=== PATIENT | female | born 1960 | race Caucasian/White ===

== ENCOUNTER 2019-05-06 09:24 | Inpatient (IN) | payer OTHER ==
[2019-05-06 09:50] VITALS: BMI 25.2
--- NOTE | 2019-05-06 10:24 | HP ---
CIWA Score Nausea/Vomitin-No Nausea/No Vomiting Muscle Tremors: None Anxiety: 1-Mildly Anxious Agitation: 1-Slight > Activity Paroxysmal Sweats: No Perspiration Orientation: 0-Oriented Tacttile Disturbances: 0-None Auditory Disturbances: 0-None Visual Disturbances: 0-None Headache: 1-Very Mild CIWA-Ar Total Score: 3 - Admission Criteria OASAS Guidelines: Admission for Medically Managed Detox: Requires at least one of the followin. CIWA greater than 12 2. Seizures within the past 24 hours 3. Delirium tremens within the past 24 hours 4. Hallucinations within the past 24 hours 5. Acute intervention needed for co occurring medical disorder 6. Acute intervention needed for co occurring psychiatric disorder 7. Severe withdrawal that cannot be handled at a lower level of care (continued vomiting, continued diarrhea, abnormal vital signs) requiring intravenous medication and/or fluids 8. Admitting History and Physical - Past Medical History ...LMP: 01/26/13 - Smoking History Smoking history: Current every day smoker Have you smoked in the past 12 months: Yes Aproximately how many cigarettes per day: 5 - Alcohol/Substance Use Hx Alcohol Use: Yes (reports drinking since 13 years old,i pint of vodka daily) Admission [facility] Allergies/Adverse Reactions: Allergies Allergy/AdvReac Type Severity Reaction Status Date / Time No Known Allergies Allergy Verified 05/06/19 09:42 History of Present Illness: pt here reporting etoh use 6 beers/week , drinking alcohol 5-6 x/week , latest use yesterday, cocaine " 24 hrs/day " 100 $ /day , latest today cannabis - " once in a while " tobacco : 07/19 ppd PMHX : htn Exam Limitations: Clinical Condition - Ebola screening Have you traveled outside of the country in the last 21 days: No Have you had contact with anyone from an Ebola affected area: No Do you have a fever: No - Review of Systems Constitutional: Loss of Appetite EENT: reports: Other (glasses) Respiratory: reports: SOB with Exertion Cardiac: reports: No Symptoms Reported GI: reports: No Symptoms Reported : reports: No Symptoms Reported Musculoskeletal: reports: No Symptoms Reported Integumentary: reports: No Symptoms Reported Neuro: reports: Headache Endocrine: reports: No Symptoms Reported Psychiatric: reports: Orientated x3, Agitated, Anxious Patient History - Patient Medical History Hx Anemia: No Hx Asthma: No Hx Chronic Obstructive Pulmonary Disease (COPD): No Hx Cancer: No Hx Cardiac Disorders: No Hx Congestive Heart Failure: No Hx Hypertension: Yes (LISINOPRIL 10 MG DAILY AND HCTZ 12.5 MG DAILY HX) Hx Hypercholesterolemia: No Hx Pacemaker: No HX Cerebrovascular Accident: No Hx Seizures: No Hx Dementia: No Hx Diabetes: No Hx Gastrointestinal Disorders: Yes (HX PROTONIX 40 DAILY) Hx Liver Disease: No Hx Genitourinary Disorders: No Hx Sexually Transmitted Disorders: No Hx Renal Disease (ESRD): No Hx Thyroid Disease: No Hx Human Immunodeficiency Virus (HIV): No Hx Hepatitis C: No Hx Depression: No Hx Suicide Attempt: No (DENIES) Hx Bipolar Disorder: No Hx Schizophrenia: No - Patient Surgical History Past Surgical History: No Hx Neurologic Surgery: No Hx Cataract Extraction: No Hx Cardiac Surgery: No Hx Lung Surgery: No Hx Breast Surgery: No Hx Breast Biopsy: No Hx Abdominal Surgery: Yes (cs) Hx Appendectomy: No Hx Cholecystectomy: No Hx Genitourinary Surgery: No Hx Section: Yes (5 times, last one at age 31) Hx Orthopedic Surgery: No Hx Hysterectomy: No Anesthesia Reaction: No - PPD History Date: 09/18/14 - Reproductive History Last Menstrual Period: 01/26/13 - Smoking Cessation Smoking history: Current every day smoker Have you smoked in the past 12 months: Yes Aproximately how many cigarettes per day: 5 Hx Chewing Tobacco Use: No Initiated information on smoking cessation: Yes 'Breaking Loose' booklet given: 05/06/19 - Substances abused Alcohol Substance route: Oral Frequency: Daily Amount used: beer- 3 16oz cans / liquor-3 -4 shots Age of first use: 27 Date of last use: 05/05/19 Crack Substance route: Smoking Frequency: Daily Amount used: $200 Age of first use: 34 Date of last use: 05/06/19 Admission Physical Exam BHS - Vital Signs Vital Signs: Vital Signs - 24 hr 05/06/19 09:44 Temperature 97.1 F L Pulse Rate 81 Respiratory 18 Rate Blood Pressure 115/73 - Physical General Appearance: Yes: Mild Distress, Anxious HEENTM: Yes: EOMI, Hearing grossly Normal, Normocephalic, Normal Voice Respiratory: Yes: Chest Non-Tender, Lungs Clear, Normal Breath Sounds Neck: Yes: No masses,lesions,Nodules, Trachea in good position Cardiology: Yes: Regular Rhythm, Regular Rate, S1, S2 Abdominal: Yes: Non Tender, Soft Extremities: Yes: Normal Inspection, Normal Range of Motion, Non-Tender Neurological: Yes: Fully Oriented, Alert, Motor Strength 5/5 Integumentary: Yes: Warm - Diagnostic (1) Cocaine dependence Current Visit: Yes Status: Chronic (2) Cannabis abuse, episodic use Current Visit: Yes Status: Chronic (3) Alcohol dependence Current Visit: Yes Status: Chronic (4) Nicotine dependence Current Visit: Yes Status: Chronic Qualifiers: Nicotine product type: cigarettes Inpatient Rehab Admission - Rehab Decision to Admit Inpatient rehab admission?: Yes - Initial Determination Are CD services needed?: Yes Free of communicable disease: Yes Not in need of hospitalization: Yes - Rehab Admission Criteria Previous failed treatment: No Poor recovery environment: No Comorbidities: No Lacks judgement: Yes Patient is meeting Inpatient Rehab admission criteria:: Yes
[2019-05-06] MEDS ORDERED: P-EPHED 60MG/TRIPROLIDI 2.5MG TABLET PO PRN (10:36)
[2019-05-06] MEDS ORDERED: LOPERAMIDE HCL 2 MG CAPSULE PO PRN (10:36)
[2019-05-06] MEDS ORDERED: MENTHOL/PHENOL 1 EACH UD MM PRN (10:36)
[2019-05-06] MEDS ORDERED: MAG HYDROX/AL HYDROX/SIMETH 30 ML UNIT-DOSE CUP PO PRN (10:36)
[2019-05-06] MEDS ORDERED: MAGNESIUM CITRATE 300 ML BOTTLE PO PRN (10:36)
[2019-05-06] MEDS ORDERED: guaiFENesin 200 MG/10 ML 10 ML UNIT-DOSE CUPS PO PRN (10:36)
[2019-05-06] MEDS ORDERED: MAGNESIUM HYDROX 2400MG/30ML ORAL SUSPENSION 30 ML CUP PO PRN (10:36)
[2019-05-06 14:41] LABS: HEMATOCRIT 42.4 % (32.4-45.2); HEMOGLOBIN 13.5 GM/dL (10.7-15.3); MCH 26.6 pg (25.7-33.7); MCHC 31.9 g/dl (32.0-36.0); MEAN CELL VOLUME 83.4 fl (80-96); MEAN PLT VOLUME 10.1 fl (7.5-11.1); PLATELET COUNT 265 K/MM3 (134-434); RBC 5.08 M/mm3 (3.60-5.2); RDW 15.2 % (11.6-15.6); WHITE BLOOD COUNT 5.4 K/mm3 (4.0-10.0)
[2019-05-06 14:50] LABS: ALBUMIN 3.8 g/dl (3.4-5.0); BILIRUBIN,TOTAL 0.6 mg/dL (0.2-1); BLOOD UREA NITROGEN 13.7 mg/dL (7-18); CALCIUM 9.4 mg/dL (8.5-10.1); CREATININE 1.1 mg/dL (0.55-1.3); POTASSIUM 4.5 mmol/L (3.5-5.1); TOT PROT 8.2 g/dl (6.4-8.2)
[2019-05-06] MEDS: THIAMINE HCL 100 MG TABLET (FP) PO SCH (21:28)
[2019-05-07] MEDS: LISINOPRIL 10 MG TABLET (FP) PO SCH (09:43)
[2019-05-07] MEDS: PRENATAL VITAMINS W/ FOLIC ACID TABLET (FP) PO SCH (09:43)
[2019-05-07 17:25] LABS: URINE APPEARANCE CLEAR; URINE BILIRUBIN NEGATIVE (NEGATIVE); URINE COLOR YELLOW; URINE GLUCOSE (UA) NEGATIVE (NEGATIVE); URINE KETONE NEGATIVE (NEGATIVE); URINE LEUK ESTERASE NEGATIVE (NEGATIVE); URINE NITRITE NEGATIVE (NEGATIVE); URINE PROTEIN NEGATIVE (NEGATIVE); URINE UROBILINOGEN 0.2 mg/dL (0.2-1.0)
[2019-05-07] MEDS: MELATONIN 5 MG TABLETS PO PRN (21:34)
[2019-05-07] MEDS: THIAMINE HCL 100 MG TABLET (FP) PO SCH (21:34)
[2019-05-08] MEDS: PRENATAL VITAMINS W/ FOLIC ACID TABLET (FP) PO SCH (10:23)
[2019-05-08] MEDS: LISINOPRIL 10 MG TABLET (FP) PO SCH (10:23)
[2019-05-08] MEDS: IBUPROFEN 400 MG TABLET (FP) PO PRN (19:12)
[2019-05-08] MEDS: THIAMINE HCL 100 MG TABLET (FP) PO SCH (21:35)
[2019-05-08] MEDS: MELATONIN 5 MG TABLETS PO PRN (21:35)
[2019-05-09] MEDS: PRENATAL VITAMINS W/ FOLIC ACID TABLET (FP) PO SCH (10:08)
[2019-05-09] MEDS: LISINOPRIL 10 MG TABLET (FP) PO SCH (10:09)
--- NOTE | 2019-05-09 15:24 | PN ---
[facility] Progress Note Note: Patient c/o anxiety and insomnia. Admitted to rehab for cocaine dependence. Will order psych consult and Vistaril 50mg po q6h prn. Vital Signs Temperature 97.7 F 05/09/19 07:11 Pulse Rate 86 05/09/19 09:13 Respiratory Rate 18 05/09/19 09:13 Blood Pressure 125/78 05/09/19 09:13 O2 Sat by Pulse Oximetry (%) Laboratory Tests 05/06/19 05/06/19 05/06/19 11:00 11:00 11:00 WBC 5.4 RBC 5.08 Hgb 13.5 Hct 42.4 MCV 83.4 MCH 26.6 MCHC 31.9 L RDW 15.2 Plt Count 265 D MPV 10.1 Sodium 140 Potassium 4.5 Chloride 105 Carbon Dioxide 31 Anion Gap 4 L BUN 13.7 Creatinine 1.1 Est GFR (CKD-EPI)AfAm 63.64 Est GFR (CKD-EPI)NonAf 54.91 Random Glucose 64 L Calcium 9.4 Total Bilirubin 0.6 AST 18 ALT 19 Alkaline Phosphatase 105 Total Protein 8.2 Albumin 3.8 Urine Color Urine Appearance Urine pH Ur Specific [place] Urine Protein Urine Glucose (UA) Urine Ketones Urine Blood Urine Nitrite Urine Bilirubin Urine Urobilinogen Ur Leukocyte Esterase RPR Titer Nonreactive HIV 1&2 Antibody Screen HIV P24 Antigen 05/07/19 05/07/19 08:15 15:45 WBC RBC Hgb Hct MCV MCH MCHC RDW Plt Count MPV Sodium Potassium Chloride Carbon Dioxide Anion Gap BUN Creatinine Est GFR (CKD-EPI)AfAm Est GFR (CKD-EPI)NonAf Random Glucose Calcium Total Bilirubin AST ALT Alkaline Phosphatase Total Protein Albumin Urine Color Yellow Urine Appearance Clear Urine pH 5.0 Ur Specific [place] 1.023 Urine Protein Negative Urine Glucose (UA) Negative Urine Ketones Negative Urine Blood Negative Urine Nitrite Negative Urine Bilirubin Negative Urine Urobilinogen 0.2 Ur Leukocyte Esterase Negative RPR Titer HIV 1&2 Antibody Screen Negative HIV P24 Antigen Negative
[2019-05-09] MEDS: hydrOXYzine PAMOATE 50 MG CAPSULE (FP) PO PRN (16:50)
[2019-05-09] MEDS: THIAMINE HCL 100 MG TABLET (FP) PO SCH (21:29)
[2019-05-09] MEDS: MELATONIN 5 MG TABLETS PO PRN (21:29)
[2019-05-10] MEDS: hydrOXYzine PAMOATE 50 MG CAPSULE (FP) PO PRN ×3 (06:28→21:27)
[2019-05-10] MEDS: PRENATAL VITAMINS W/ FOLIC ACID TABLET (FP) PO SCH (10:24)
[2019-05-10] MEDS: LISINOPRIL 10 MG TABLET (FP) PO SCH (10:24)
--- NOTE | 2019-05-10 16:06 | CONSULT ---
[facility] Psychiatric Consult - Data Date of interview: 05/10/19 Admission source: [facility] Identifying data: Readmission to [facility] for this 58 y/o female, directly sent to [address] from the [facility] for rehabilitative care covering LEROY issues (crack/cocaine, alcohol, nicotine, cannabis) and substance mood disorder. Patient is single, a mother of four, domiciled, unemployed and supported on Public Assistance. Substance Abuse History: Discussed with patient. Details in current [facility] report as follows : Smoking history: Current every day smoker. Have you smoked in the past 12 months: Yes. Aproximately how many cigarettes per day: 5. Hx Chewing Tobacco Use: No. Initiated information on smoking cessation: Yes. 'Breaking Loose' booklet given: 05/06/19. - Substances abused. Alcohol. Substance route: Oral. Frequency: Daily. Amount used: beer- 3 16oz cans / liquor-3 -4 shots. Age of first use: 27. Date of last use: 05/05/19. Crack. Substance route: Smoking. Frequency: Daily. Amount used: $200. Age of first use: 34. Date of last use: 05/06/19 Medical History: Remarkable for GERD, hypertension and a history of five sections. Psychiatric History: No reported history of psychiatric hospitalizations. Patient states that she was prescribed psychotropic medications (seroquel 300 mg /hs) during her incarceration. However, she has been off medication for 8-9 months. " I was too weak. That medicine was too much for me. I was falling all over. So, I stop taking it." No psychiatric OPD care. Ms Cruz denies history of suicide attempts. Physical/Sexual Abuse/Trauma History: Patient denies. Additional Comment: No toxicology for review. Mental Status Exam - Mental Status Exam Alert and Oriented to: Time, Place, Person Cognitive Function: Grossly Intact Patient Appearance: Disheveled (thin, frail habitus) Mood: Nervous, Withdrawn, Apprehensive, Hopeful Affect: Mood Congruent, Constricted Patient Behavior: Appropriate, Cooperative Speech Pattern: Clear Voice Loudness: Normal Thought Process: Goal Oriented Thought Disorder: Not Present Hallucinations: Denies Suicidal Ideation: Denies Homicidal Ideation: Denies Insight/Judgement: Fair Sleep: Well Appetite: Poor, Weight loss Gait/Station: Normal Psychiatric Findings - Problem List ([place] 1, 2,3) (1) Alcohol dependence Current Visit: Yes Status: Chronic (2) Cocaine dependence Current Visit: Yes Status: Chronic (3) Nicotine dependence Current Visit: Yes Status: Chronic Qualifiers: Nicotine product type: cigarettes (4) Substance induced mood disorder Current Visit: Yes Status: Chronic - Initial Treatment Plan Initial Treatment Plan: Psychoeducation. Sleep hygiene. Support. AA meetings. Patient declines to resume seroquel, even at a much lesser dose. Observation.
[2019-05-10] MEDS: THIAMINE HCL 100 MG TABLET (FP) PO SCH (21:27)
[2019-05-11] MEDS: hydrOXYzine PAMOATE 50 MG CAPSULE (FP) PO PRN ×3 (06:23→18:28)
[2019-05-11] MEDS: PRENATAL VITAMINS W/ FOLIC ACID TABLET (FP) PO SCH (10:25)
[2019-05-11] MEDS: LISINOPRIL 10 MG TABLET (FP) PO SCH (10:25)
[2019-05-11] MEDS: THIAMINE HCL 100 MG TABLET (FP) PO SCH (21:20)
[2019-05-11] MEDS: MELATONIN 5 MG TABLETS PO PRN (21:20)
[2019-05-12] MEDS: hydrOXYzine PAMOATE 50 MG CAPSULE (FP) PO PRN ×3 (06:54→21:13)
[2019-05-12] MEDS: ACETAMINOPHEN 325 MG TABLET (FP) PO PRN (06:54)
[2019-05-12] MEDS: PRENATAL VITAMINS W/ FOLIC ACID TABLET (FP) PO SCH (10:31)
[2019-05-12] MEDS: LISINOPRIL 10 MG TABLET (FP) PO SCH (10:31)
[2019-05-12] MEDS: MELATONIN 5 MG TABLETS PO PRN (21:13)
[2019-05-12] MEDS: THIAMINE HCL 100 MG TABLET (FP) PO SCH (21:13)
[2019-05-13] MEDS: hydrOXYzine PAMOATE 50 MG CAPSULE (FP) PO PRN ×3 (06:20→21:06)
[2019-05-13] MEDS: PRENATAL VITAMINS W/ FOLIC ACID TABLET (FP) PO SCH (09:36)
[2019-05-13] MEDS: LISINOPRIL 10 MG TABLET (FP) PO SCH (09:37)
[2019-05-13] MEDS: IBUPROFEN 400 MG TABLET (FP) PO PRN ×2 (11:08→21:07)
[2019-05-13] MEDS: MELATONIN 5 MG TABLETS PO PRN (21:06)
[2019-05-13] MEDS: THIAMINE HCL 100 MG TABLET (FP) PO SCH (21:06)
[2019-05-14] MEDS: hydrOXYzine PAMOATE 50 MG CAPSULE (FP) PO PRN ×3 (06:14→19:20)
[2019-05-14] MEDS: PRENATAL VITAMINS W/ FOLIC ACID TABLET (FP) PO SCH (10:20)
[2019-05-14] MEDS: LISINOPRIL 10 MG TABLET (FP) PO SCH (10:20)
[2019-05-14] MEDS: MELATONIN 5 MG TABLETS PO PRN (22:40)
[2019-05-14] MEDS: THIAMINE HCL 100 MG TABLET (FP) PO SCH (22:40)
[2019-05-15] MEDS: hydrOXYzine PAMOATE 50 MG CAPSULE (FP) PO PRN (06:26)
[2019-05-15] MEDS: PRENATAL VITAMINS W/ FOLIC ACID TABLET (FP) PO SCH (10:35)
[2019-05-15] MEDS: LISINOPRIL 10 MG TABLET (FP) PO SCH (10:35)
[2019-05-15] MEDS ORDERED: PT OWN MED DRAWER 7, Y5N ONE (10:36)
--- NOTE | 2019-05-15 11:56 | PN ---
Psychiatric Progress Note Vital Signs: Vital Signs Period Temp Pulse Resp BP Sys/Christensen Pulse Ox Last 24 Hr 97.8 F 82-108 16-18 114-129/75-83 Date of Session: 05/15/19 Chief Complaint:: " I have anxiety and I am not sleeping well." HPI: Patient admitted to for crack/cocaine, alcohol, nicotine, and cannabis dependence. ROS: Patient is coherent, alert + oriented X3. Current Medications: Active Medications Generic Name Dose Route Start Last Admin Trade Name Freq PRN Reason Stop Dose Admin Acetaminophen 650 mg 05/06/19 10:36 05/12/19 06:54 Tylenol - PO 650 mg Q4H PRN Administration FEVER Al Hydroxide/Mg Hydroxide 30 ml 05/06/19 10:36 Mylanta Oral Suspension - PO Q6H PRN DYSPEPSIA Eucalyptus/Menthol/Phenol/Sorbitol 1 each 05/06/19 10:36 Cepastat Lozenge - MM Q4H PRN SORE THROAT Guaifenesin 10 ml 05/06/19 10:36 Robitussin - PO Q6H PRN COUGH Hydroxyzine Pamoate 50 mg 05/09/19 14:46 05/15/19 06:26 Vistaril - PO 50 mg Q6H PRN Administration ANXIETY Ibuprofen 400 mg 05/06/19 10:36 05/13/19 21:07 Motrin - PO 400 mg Q6H PRN Administration Pain level 4-6 Lisinopril 30 mg 05/07/19 10:00 05/15/19 10:35 Prinivil PO 30 mg DAILY JOAQUIM Administration Loperamide HCl 4 mg 05/06/19 10:36 Imodium - PO Q6H PRN DIARRHEA Magnesium Citrate 300 ml 05/06/19 10:36 Citroma - PO Q48H PRN CONSTIPATION Magnesium Hydroxide 30 ml 05/06/19 10:36 Milk Of Magnesia - PO DAILY PRN CONSTIPATION Melatonin 5 mg 05/06/19 22:00 05/14/19 22:40 Melatonin PO 5 mg HS PRN Administration INSOMNIA Multivit/Folic Acid/Iron 1 tab 05/07/19 10:00 05/15/19 10:35 Vitamins (Sjr) - PO 1 tab DAILY JOAQUIM Administration Pseudoephedrine/Triprolidine 1 combo 05/06/19 10:36 Actifed - PO TID PRN NASAL CONGESTION Thiamine HCl 100 mg 05/06/19 22:00 05/14/19 22:40 Vitamin B1 - PO 100 mg HS JOAQUIM Administration Medication(s) Change(s): Yes. Current Side Effect: No Lab tests ordered: No Lab tests reviewed: Yes Provider note:: Patient reports difficulty sleeping and anxiety which is unresolved with vistaril 50mg. Will d/c Melatonin 5mg and Vistaril 50mg q6h. Will order Melatonin 10mg and Vistaril 75mg Q6H. Patient was also educated on the importance of proper sleep hygiene and on utilizing her coping skills to better manage her anxiety. Benefits and side effects discussed. Verbal consent given. Total face to face time:: 25 Mental Status Exam - Mental Status Exam Alert and Oriented to: Time, Place, Person Cognitive Function: Good Patient Appearance: Well Groomed Mood: Euthymic Affect: Mood Congruent Patient Behavior: Cooperative Speech Pattern: Appropriate Voice Loudness: Normal Thought Process: Goal Oriented Thought Disorder: Not Present Hallucinations: Denies Suicidal Ideation: Denies Homicidal Ideation: Denies Insight/Judgement: Poor Sleep: Poorly Appetite: Fair Muscle strength/Tone: Normal Gait/Station: Normal Psychiatric Treatment Plan - Problem List (1) Substance-induced sleep disorder Current Visit: Yes (2) Alcohol dependence Current Visit: Yes (3) Cocaine dependence Current Visit: Yes (4) Nicotine dependence Current Visit: Yes Qualifiers: Nicotine product type: cigarettes (5) Substance induced mood disorder Current Visit: Yes
[2019-05-15] MEDS: hydrOXYzine PAMOATE 25 MG CAPSULE (FP) PO PRN ×2 (12:50→18:55)
[2019-05-15] MEDS: THIAMINE HCL 100 MG TABLET (FP) PO SCH (21:42)
[2019-05-15] MEDS: MELATONIN 5 MG TABLETS PO PRN (21:43)
[2019-05-16] MEDS: hydrOXYzine PAMOATE 25 MG CAPSULE (FP) PO PRN ×3 (06:10→19:42)
[2019-05-16] MEDS: LISINOPRIL 10 MG TABLET (FP) PO SCH (09:41)
[2019-05-16] MEDS: PRENATAL VITAMINS W/ FOLIC ACID TABLET (FP) PO SCH (09:41)
[2019-05-16] MEDS: THIAMINE HCL 100 MG TABLET (FP) PO SCH (22:49)
[2019-05-17] MEDS: hydrOXYzine PAMOATE 25 MG CAPSULE (FP) PO PRN ×2 (06:41→15:04)
[2019-05-17] MEDS: PRENATAL VITAMINS W/ FOLIC ACID TABLET (FP) PO SCH (09:50)
[2019-05-17] MEDS: LISINOPRIL 10 MG TABLET (FP) PO SCH (09:51)
[2019-05-17] MEDS: MELATONIN 5 MG TABLETS PO PRN (21:31)
[2019-05-17] MEDS: THIAMINE HCL 100 MG TABLET (FP) PO SCH (21:31)
[2019-05-18] MEDS: hydrOXYzine PAMOATE 25 MG CAPSULE (FP) PO PRN ×2 (06:07→14:50)
[2019-05-18] MEDS: PRENATAL VITAMINS W/ FOLIC ACID TABLET (FP) PO SCH (09:01)
[2019-05-18] MEDS: LISINOPRIL 10 MG TABLET (FP) PO SCH (09:02)
[2019-05-18] MEDS: THIAMINE HCL 100 MG TABLET (FP) PO SCH (21:25)
[2019-05-18] MEDS: MELATONIN 5 MG TABLETS PO PRN (21:25)
[2019-05-19] MEDS: hydrOXYzine PAMOATE 25 MG CAPSULE (FP) PO PRN ×2 (06:18→14:05)
[2019-05-19] MEDS ORDERED: PT OWN MED DRAWER 7, Y5N ONE ×2 (08:50→12:07)
[2019-05-19] MEDS: PRENATAL VITAMINS W/ FOLIC ACID TABLET (FP) PO SCH (09:31)
[2019-05-19] MEDS: LISINOPRIL 10 MG TABLET (FP) PO SCH (09:31)
[2019-05-19] MEDS: MELATONIN 5 MG TABLETS PO PRN (21:23)
[2019-05-19] MEDS: THIAMINE HCL 100 MG TABLET (FP) PO SCH (21:23)
[2019-05-20] MEDS: hydrOXYzine PAMOATE 25 MG CAPSULE (FP) PO PRN ×2 (06:46→15:30)
[2019-05-20] MEDS: ACETAMINOPHEN 325 MG TABLET (FP) PO PRN (06:46)
[2019-05-20] MEDS: LISINOPRIL 10 MG TABLET (FP) PO SCH (09:36)
[2019-05-20] MEDS: PRENATAL VITAMINS W/ FOLIC ACID TABLET (FP) PO SCH (09:36)
[2019-05-20] MEDS ORDERED: PT OWN MED DRAWER 7, Y5N ONE (15:27)
[2019-05-20] MEDS: THIAMINE HCL 100 MG TABLET (FP) PO SCH (21:25)
[2019-05-20] MEDS: MELATONIN 5 MG TABLETS PO PRN (21:25)
[2019-05-21] MEDS: hydrOXYzine PAMOATE 25 MG CAPSULE (FP) PO PRN ×2 (06:28→15:32)
[2019-05-21] MEDS: LISINOPRIL 10 MG TABLET (FP) PO SCH (09:09)
[2019-05-21] MEDS: PRENATAL VITAMINS W/ FOLIC ACID TABLET (FP) PO SCH (09:09)
[2019-05-21] MEDS: MELATONIN 5 MG TABLETS PO PRN (21:21)
[2019-05-21] MEDS: THIAMINE HCL 100 MG TABLET (FP) PO SCH (21:21)
[2019-05-22] MEDS: hydrOXYzine PAMOATE 25 MG CAPSULE (FP) PO PRN ×2 (07:15→15:41)
[2019-05-22] MEDS: LISINOPRIL 10 MG TABLET (FP) PO SCH (09:45)
[2019-05-22] MEDS: PRENATAL VITAMINS W/ FOLIC ACID TABLET (FP) PO SCH (09:45)
[2019-05-22] MEDS: MELATONIN 5 MG TABLETS PO PRN (21:15)
[2019-05-22] MEDS: THIAMINE HCL 100 MG TABLET (FP) PO SCH (21:15)
[2019-05-22] MEDS ORDERED: PT OWN MED DRAWER 7, Y5N ONE (23:34)
[2019-05-23] MEDS: hydrOXYzine PAMOATE 25 MG CAPSULE (FP) PO PRN ×2 (06:20→16:30)
[2019-05-23] MEDS ORDERED: COLLOIDAL OATMEAL 1 BAR EACH TP PRN (08:22)
[2019-05-23] MEDS: PRENATAL VITAMINS W/ FOLIC ACID TABLET (FP) PO SCH (09:44)
[2019-05-23] MEDS: LISINOPRIL 10 MG TABLET (FP) PO SCH (09:44)
[2019-05-23] MEDS ORDERED: PT OWN MED DRAWER 7, Y5N ONE (19:24)
[2019-05-23] MEDS: THIAMINE HCL 100 MG TABLET (FP) PO SCH (21:22)
[2019-05-23] MEDS: MELATONIN 5 MG TABLETS PO PRN (21:22)
[2019-05-24] MEDS: hydrOXYzine PAMOATE 25 MG CAPSULE (FP) PO PRN ×2 (06:46→15:51)
[2019-05-24] MEDS: LISINOPRIL 10 MG TABLET (FP) PO SCH (09:36)
[2019-05-24] MEDS: PRENATAL VITAMINS W/ FOLIC ACID TABLET (FP) PO SCH (09:36)
[2019-05-24] MEDS ORDERED: PT OWN MED DRAWER 7, Y5N ONE (15:50)
[2019-05-24] MEDS: THIAMINE HCL 100 MG TABLET (FP) PO SCH (21:35)
[2019-05-24] MEDS: MELATONIN 5 MG TABLETS PO PRN (21:35)
[2019-05-24] MEDS: IBUPROFEN 400 MG TABLET (FP) PO PRN (21:37)
[2019-05-25] MEDS: hydrOXYzine PAMOATE 25 MG CAPSULE (FP) PO PRN ×2 (06:38→15:14)
[2019-05-25] MEDS: PRENATAL VITAMINS W/ FOLIC ACID TABLET (FP) PO SCH (09:44)
[2019-05-25] MEDS: LISINOPRIL 10 MG TABLET (FP) PO SCH (09:44)
[2019-05-25] MEDS: IBUPROFEN 400 MG TABLET (FP) PO PRN (09:44)
[2019-05-25] MEDS: THIAMINE HCL 100 MG TABLET (FP) PO SCH (21:40)
[2019-05-26] MEDS: hydrOXYzine PAMOATE 25 MG CAPSULE (FP) PO PRN ×2 (06:47→15:42)
[2019-05-26] MEDS: LISINOPRIL 10 MG TABLET (FP) PO SCH (09:45)
[2019-05-26] MEDS: PRENATAL VITAMINS W/ FOLIC ACID TABLET (FP) PO SCH (09:45)
[2019-05-26] MEDS: IBUPROFEN 400 MG TABLET (FP) PO PRN (12:27)
[2019-05-26] MEDS: MELATONIN 5 MG TABLETS PO PRN (21:20)
[2019-05-26] MEDS: THIAMINE HCL 100 MG TABLET (FP) PO SCH (21:20)
[2019-05-27] MEDS: hydrOXYzine PAMOATE 25 MG CAPSULE (FP) PO PRN ×2 (06:34→17:05)
[2019-05-27] MEDS: PRENATAL VITAMINS W/ FOLIC ACID TABLET (FP) PO SCH (09:43)
[2019-05-27] MEDS: LISINOPRIL 10 MG TABLET (FP) PO SCH (09:43)
[2019-05-27] MEDS: THIAMINE HCL 100 MG TABLET (FP) PO SCH (21:59)
[2019-05-28] MEDS: hydrOXYzine PAMOATE 25 MG CAPSULE (FP) PO PRN ×2 (06:31→17:07)
[2019-05-28] MEDS: PRENATAL VITAMINS W/ FOLIC ACID TABLET (FP) PO SCH (09:31)
[2019-05-28] MEDS: LISINOPRIL 10 MG TABLET (FP) PO SCH (09:32)
[2019-05-28] MEDS: THIAMINE HCL 100 MG TABLET (FP) PO SCH (21:14)
[2019-05-28] MEDS: MELATONIN 5 MG TABLETS PO PRN (21:14)
[2019-05-29] MEDS: hydrOXYzine PAMOATE 25 MG CAPSULE (FP) PO PRN ×2 (06:20→14:59)
[2019-05-29] MEDS: LISINOPRIL 10 MG TABLET (FP) PO SCH (09:43)
[2019-05-29] MEDS: PRENATAL VITAMINS W/ FOLIC ACID TABLET (FP) PO SCH (09:44)
[2019-05-29] MEDS ORDERED: PT OWN MED DRAWER 7, Y5N ONE ×2 (09:49→21:11)
--- NOTE | 2019-05-29 14:02 | PREP.REFER ---
HIV PrEP/PEP - PrEP HIV Risk Assessment When was your last HIV test?: 05/13/19 HIV Test offered: Accepted (patient had HIV test upon admission, it was negative.) Are you concerned about any sexual encounters past 6 months?: No Have you had a STI in the last 6 months?: No Have you shared needles or other equipment?: Yes Are you interested in daily medication to help prevent HIV?: No Recommendation: Consider PrEP referral Comment: discussed PrEP with the patient, who says she has sex with only one person and does not need PrEP. She does not know the status of her partner, she was worried so that is the reason she had a test upon admission. Advised patient to encourage her partner to get tested. Offered referral to PrEP team, the patient refused. - PEP HIV Risk Assessment Are you concerned about sexual encounters in past 72 hours?: No Recommendation: None at this time
[2019-05-29] MEDS: THIAMINE HCL 100 MG TABLET (FP) PO SCH (21:47)
[2019-05-30] MEDS: hydrOXYzine PAMOATE 25 MG CAPSULE (FP) PO PRN ×2 (06:43→15:34)
[2019-05-30] MEDS: LISINOPRIL 10 MG TABLET (FP) PO SCH (09:48)
[2019-05-30] MEDS: PRENATAL VITAMINS W/ FOLIC ACID TABLET (FP) PO SCH (09:48)
[2019-05-30] MEDS: MELATONIN 5 MG TABLETS PO PRN (21:38)
[2019-05-30] MEDS: THIAMINE HCL 100 MG TABLET (FP) PO SCH (21:38)
[2019-05-31] MEDS: hydrOXYzine PAMOATE 25 MG CAPSULE (FP) PO PRN ×2 (06:34→15:11)
[2019-05-31] MEDS: ACETAMINOPHEN 325 MG TABLET (FP) PO PRN (06:35)
[2019-05-31] MEDS: LISINOPRIL 10 MG TABLET (FP) PO SCH (09:53)
[2019-05-31] MEDS: PRENATAL VITAMINS W/ FOLIC ACID TABLET (FP) PO SCH (09:53)
[2019-05-31] MEDS: MELATONIN 5 MG TABLETS PO PRN (21:40)
[2019-05-31] MEDS: THIAMINE HCL 100 MG TABLET (FP) PO SCH (21:40)
[2019-06-01] MEDS: hydrOXYzine PAMOATE 25 MG CAPSULE (FP) PO PRN ×2 (06:13→15:39)
[2019-06-01] MEDS: LISINOPRIL 10 MG TABLET (FP) PO SCH (09:26)
[2019-06-01] MEDS: PRENATAL VITAMINS W/ FOLIC ACID TABLET (FP) PO SCH (09:26)
[2019-06-01] MEDS: ACETAMINOPHEN 325 MG TABLET (FP) PO PRN (09:28)
[2019-06-01] MEDS: THIAMINE HCL 100 MG TABLET (FP) PO SCH (21:36)
[2019-06-01] MEDS: MELATONIN 5 MG TABLETS PO PRN (21:37)
[2019-06-02] MEDS: hydrOXYzine PAMOATE 25 MG CAPSULE (FP) PO PRN ×2 (07:17→17:06)
[2019-06-02] MEDS ORDERED: PT OWN MED DRAWER 7, Y5N ONE (08:42)
[2019-06-02] MEDS: PRENATAL VITAMINS W/ FOLIC ACID TABLET (FP) PO SCH (09:54)
[2019-06-02] MEDS: LISINOPRIL 10 MG TABLET (FP) PO SCH (09:54)
[2019-06-02] MEDS: THIAMINE HCL 100 MG TABLET (FP) PO SCH (21:22)
[2019-06-02] MEDS: MELATONIN 5 MG TABLETS PO PRN (21:22)
[2019-06-03 06:48] VITALS: TEMP 97
[2019-06-03] MEDS: hydrOXYzine PAMOATE 25 MG CAPSULE (FP) PO PRN (07:29)
--- NOTE | 2019-06-03 08:24 | DS ---
[facility] Rehab Discharge Summary - [facility] Rehab Discharge Summary Admission Date: 05/06/19 Discharge Date: 06/03/19 - History Present History: Alcohol dependence, Cocaine dependence Additional Comments: Pt is a 58 y/o female with a hx of LEROY admitted to rehab and discharged today. Pt reports she has a primary care doctor on [address] [place] [address] for medical management. Pertinent Past History: GERD HTN Mood disorder - Discharge Physical Exam Vital Signs: Vital Signs Temperature 97 F L 06/03/19 06:46 Pulse Rate 91 H 06/03/19 06:46 Respiratory Rate 16 06/03/19 06:46 Blood Pressure 144/88 06/03/19 06:46 O2 Sat by Pulse Oximetry (%) Alert o x 3 nad oob ambulating with steady gait cardiac:s1 s2,rrr lungs:cta,[place]. abdomen;soft,+bs,flat,nt extremities/skin:no edema,full ROM/weight bearing, skin intact Pertinent Admission Physical Exam Findings: Laboratory Tests 05/06/19 05/06/19 05/06/19 11:00 11:00 11:00 WBC 5.4 RBC 5.08 Hgb 13.5 Hct 42.4 MCV 83.4 MCH 26.6 MCHC 31.9 L RDW 15.2 Plt Count 265 D MPV 10.1 Sodium 140 Potassium 4.5 Chloride 105 Carbon Dioxide 31 Anion Gap 4 L BUN 13.7 Creatinine 1.1 Est GFR (CKD-EPI)AfAm 63.64 Est GFR (CKD-EPI)NonAf 54.91 Random Glucose 64 L Calcium 9.4 Total Bilirubin 0.6 AST 18 ALT 19 Alkaline Phosphatase 105 Total Protein 8.2 Albumin 3.8 Urine Color Urine Appearance Urine pH Ur Specific [place] Urine Protein Urine Glucose (UA) Urine Ketones Urine Blood Urine Nitrite Urine Bilirubin Urine Urobilinogen Ur Leukocyte Esterase RPR Titer Nonreactive HIV 1&2 Antibody Screen HIV P24 Antigen 05/07/19 05/07/19 08:15 15:45 WBC RBC Hgb Hct MCV MCH MCHC RDW Plt Count MPV Sodium Potassium Chloride Carbon Dioxide Anion Gap BUN Creatinine Est GFR (CKD-EPI)AfAm Est GFR (CKD-EPI)NonAf Random Glucose Calcium Total Bilirubin AST ALT Alkaline Phosphatase Total Protein Albumin Urine Color Yellow Urine Appearance Clear Urine pH 5.0 Ur Specific [place] 1.023 Urine Protein Negative Urine Glucose (UA) Negative Urine Ketones Negative Urine Blood Negative Urine Nitrite Negative Urine Bilirubin Negative Urine Urobilinogen 0.2 Ur Leukocyte Esterase Negative RPR Titer HIV 1&2 Antibody Screen Negative HIV P24 Antigen Negative Unremarkable from admission - Treatment Discharge Condition: Discharge condition good Hospital Course: rehabilitated safely, responded well CD aftercare referral accepted to [facility] - Medication Discharge Medications: Ambulatory Orders Lisinopril [Prinivil] 30 mg PO DAILY #30 tablet 06/03/19 - Medication-Assisted Treatment (MAT) Medication-Assisted Treatment (MAT): No - Discharge Instructions Diet, activity, other medical instructions: Diet:SARA Activity: oob ad selma Other medical instructions:follow up with primary care doctor(pt forgot name)on [place], [place] within 1-2 weeks after discharge for medical management. follow up with CD aftercare at [facility] at [address] [place] [address] as scheduled. - Diagnosis (1) Alcohol dependence Status: Chronic (2) Cannabis abuse, episodic use Status: Chronic (3) Cocaine dependence Status: Chronic (4) GERD (gastroesophageal reflux disease) Status: Chronic Qualifiers: Esophagitis presence: esophagitis presence not specified Qualified Code(s) : K21.9 - Gastro-esophageal reflux disease without esophagitis (5) Hypertension Status: Chronic Qualifiers: Hypertension type: essential hypertension Qualified Code(s): I10 - Essential (primary) hypertension (6) Nicotine dependence Status: Chronic Qualifiers: Nicotine product type: cigarettes - Follow-up Referral Minutes to complete discharge: 20 - AMA Did Patient Leave Against Medical Advice: No Additional Comments: Rx for Lisinopril 10 mg po daily #30 electronically sent to 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 Pt to follow up with her primary care doctor for further medical management.
[2019-06-03] MEDS: PRENATAL VITAMINS W/ FOLIC ACID TABLET (FP) PO SCH (09:19)
[2019-06-03] MEDS: LISINOPRIL 10 MG TABLET (FP) PO SCH (09:20)
[2019-06-03] MEDS ORDERED: PT OWN MED DRAWER 7, Y5N ONE (10:25)
[2019-06-03 10:43] VITALS: BP 118/81; PULSE 113
== END 2019-06-03 09:30 | disposition home or self-care (01) | DRG 772 ==
LOC: YASAS 09:24 → Y3E 10:38
PROVIDERS: ADMIT Neuromusculoskeletal Medicine & OMM; ATTEND Neuromusculoskeletal Medicine & OMM
PROC: HZ42ZZZ Group Counseling for Substance Abuse Treatment, Cognitive-Behavioral (ICD-10-PCS; principal; 2019-05-06)
DX: F10.20 Alcohol dependence, uncomplicated (principal); F14.20 Cocaine dependence, uncomplicated; F12.20 Cannabis dependence, uncomplicated; F17.210 Nicotine dependence, cigarettes, uncomplicated; F19.282 Other psychoactive substance dependence with psychoactive substance-induced sleep disorder; F19.24 Other psychoactive substance dependence with psychoactive substance-induced mood disorder; I10 Essential (primary) hypertension; K21.9 Gastro-esophageal reflux disease without esophagitis
CPT/HCPCS: 36415; 80053; 81003; 85027; 86593; 87389

== ENCOUNTER → 2022-10-31 | Day surgery (SDC) | payer OTHER ==
[2022-10-27 15:37] VITALS: BMI 20.1
[~2022-10-31] MED LIST: ACETAMINOPHEN 500 MG TABLET (FP) PO PRN
== END | disposition home or self-care (01) ==
LOC: JASU-SURG 04:45
PROVIDERS: ATTEND Pain Medicine Pain Medicine
DX: Z53.8 Procedure and treatment not carried out for other reasons (principal)